=== PATIENT | male | born 1975 | race Caucasian/White ===

== ENCOUNTER 2017-04-05 10:33 | Emergency (ER) | payer MEDICAID ==
[~2017-04-05] VITALS: Ht 170.2 cm; Wt 103.4 kg
[2017-04-05 12:10] VITALS: BP 148/100
== END 2017-04-05 12:10 | disposition home or self-care (01) ==
LOC: ED 10:33
DX: I10 Essential (primary) hypertension (principal); R51 Headache; Z88.0 Allergy status to penicillin
CPT/HCPCS: 82962